=== PATIENT | female | born 1990 | race American Indian/Alaskan Native ===

== ENCOUNTER 2016-11-12 01:01 | Emergency (ER) | payer MEDICARE ==
[2016-11-12 01:08] VITALS: BP 154/85
== END 2016-11-12 01:08 | disposition left against medical advice (07) ==
LOC: ED 01:01
DX: Z53.21 Procedure and treatment not carried out due to patient leaving prior to being seen by health care provider (principal)

== ENCOUNTER 2017-11-04 06:28 | Emergency (ER) | payer MEDICARE ==
--- NOTE | 2017-11-04 08:08 | XRay Report ---
LEFT HUMERUS, ONE VIEW LEFT FOREARM, ONE VIEW History: Fall, injury, arm pain. Findings: Single views of the left upper extremity were obtained. A comminuted and mildly displaced fracture is identified in the distal left humeral shaft. Posterior displacement measures 1.2 cm. A butterfly fragment is present measuring approximately 4 cm in length. Limited single view of the left forearm demonstrates no gross abnormality. There is poor visualization of the radial head. Impression: Comminuted, mildly displaced fracture of the distal left humerus. No gross abnormality with the left forearm although the radial head is poorly imaged.
[2017-11-04] MEDS ORDERED: ZOFRAN IV ONE (08:25)
[2017-11-04] MEDS ORDERED: DILAUDID IV ONE ×2 (08:25→09:35)
[2017-11-04] MEDS ORDERED: TORADOL IV ONE (08:25)
--- NOTE | 2017-11-04 08:34 | Emergency Department Report ---
ED Upper Extremity Inj HPI - General Chief Complaint: Extremity Injury, Upper Stated Complaint: LT ARM INJURY Time Seen by Provider: 11/04/17 08:19 Source: patient, family Mode of arrival: Wheelchair Limitations: No Limitations, Physical Limitation - History of Present Illness Initial Comments: 27-year-old [id number] female with a past medical history childhood asthma and bipolar disorder presents to the hospital complaining of left arm pain after fall 30 minutes prior to arrival. Patient was trying to lift a box spring, her foot got caught in the railing and she fell backwards and heard a pop on her left arm patient presents with 10/10 constant left arm pain worse with movement and palpation. No alleviating factors reported. No other injury reported. - Related Data Home Medications Medication Instructions Recorded Confirmed Last Taken Benztropine [Cogentin] 0.5 mg PO BID 09/24/13 09/24/[address] [Depakote] 125 mg PO QID 09/24/13 09/24/13 Unknown Paliperidone [Invega] 09/24/13 09/24/13 Unknown diphenhydrAMINE [Benadryl] 09/24/13 09/24/13 Unknown Previous Rx's Medication Instructions Recorded Last Taken Type Azithromycin [Zithromax] 500 mg PO QDAY #5 tablet 07/16/13 Unknown Rx Hycodan Susp 1 tsp PO Q6H PRN #120 ml 07/16/13 Unknown Rx Acetaminophen/Codeine [Tylenol #3] 1 tab PO Q6H PRN #12 tab 09/24/13 Unknown Rx Ciprofloxacin HCl [Cipro] 500 mg PO Q12H #30 tab 09/24/13 Unknown Rx predniSONE [Deltasone] 50 mg PO QDAY #5 tab 09/24/13 Unknown Rx HYDROcodone/APAP 5-325 [[place] 1 each PO Q6HR PRN #20 tablet 11/04/17 Unknown Rx 5/325] Ibuprofen [Motrin] 800 mg PO Q8HR PRN #30 tablet 11/04/17 Unknown Rx Allergies Allergy/AdvReac Type Severity Reaction Status Date / Time No Known Allergies Allergy Verified 09/24/13 19:20 ED Review of Systems ROS: Stated complaint: LT ARM INJURY Other details as noted in HPI Comment: All other systems reviewed and negative Other: Constitutional: No fevers chills Eyes: No eye pain visual changes ENT: No ear pain or throat pain Neck: Denies pain Respiratory: Denies cough wheezing shortness of breath Cardiovascular: Denies chest pain, palpitations, syncope GI: Denies abdominal pain, nausea, vomiting, diarrhea : Denies dysuria, urinary frequency, or urgency Musculoskeletal: As per HPI Skin: Denies rash, lesions, erythema Neurologic: Denies headache, numbness, weakness Psychiatric: Denies suicidal ideation, hallucinations Hematological/lymphatic: Denies easy bruising, lymphadenopathy ED Past Medical Hx - Past Medical History Previous Medical History?: Yes Hx Psychiatric Treatment: Yes (bipolar) Hx Asthma: Yes (as child) - Surgical History Past Surgical History?: No - Social History Smoking Status: Never Smoker Substance Use Type: None - Medications Home Medications: Home Medications Medication Instructions Recorded Confirmed Last Taken Type Azithromycin [Zithromax] 500 mg PO QDAY #5 tablet 07/16/13 09/24/13 Unknown Rx Hycodan Susp 1 tsp PO Q6H PRN #120 ml 07/16/13 09/24/13 Unknown Rx Acetaminophen/Codeine [Tylenol #3] 1 tab PO Q6H PRN #12 tab 09/24/13 Unknown Rx Benztropine [Cogentin] 0.5 mg PO BID 09/24/13 09/24/13 Unknown History Ciprofloxacin HCl [Cipro] 500 mg PO Q12H #30 tab 09/24/[address] [Depakote] 125 mg PO QID 09/24/13 09/24/13 Unknown History Paliperidone [Invega] 09/24/13 09/24/13 Unknown History diphenhydrAMINE [Benadryl] 09/24/13 09/24/13 Unknown History predniSONE [Deltasone] 50 mg PO QDAY #5 tab 09/24/13 Unknown Rx HYDROcodone/APAP 5-325 [[place] 1 each PO Q6HR PRN #20 tablet 11/04/17 Unknown Rx 5/325] Ibuprofen [Motrin] 800 mg PO Q8HR PRN #30 tablet 11/04/17 Unknown Rx ED Physical Exam - General Limitations: No Limitations, Physical Limitation - Other Other exam information: General: No limitations, patient is alert in no acute distress Head exam: Atraumatic, normocephalic Eyes exam: Normal appearance ENT: Moist mucous membrane, normal oropharynx Neck exam: Normal inspection, full range of motion, no meningismus nontender Respiratory exam: Clear to auscultation bilateral, no wheezes, rales, crackles Cardiovascular: Normal rate and rhythm, normal heart sounds Abdomen: Soft, nondistended, and nontender, with normal bowel sounds, no rebound, or guarding Extremity: Left arm swelling with tenderness humerus. 2+ radial pulses. Radial nerve function including wrist dorsiflexion, thumb movement, and also movement of the fingers appeared to be intact and adequate strength against resistance. Sensation also intact Back: Normal Inspection, full range of motion, no tenderness Neurologic: Alert, oriented x3, cranial nerves intact, no motor or sensory deficit Psychiatric: normal affect, normal mood Skin: Warm, dry, intact ED Course Vital Signs 11/04/17 11/04/17 11/04/17 07:04 08:25 08:36 Temperature 98.7 F Pulse Rate 89 86 Respiratory 18 20 Rate Blood Pressure 99/47 Blood Pressure 143/94 [right arm] O2 Sat by Pulse 100 99 99 Oximetry - Reevaluation(s) Reevaluation #1: 11/04/17 09:08 Patient treated with Dilaudid, Zofran, and Toradol for pain - Consultations Consultation #1: 11/04/17 08:[address] Potts certified health education specialist orthopedic surgeon. Recommended coaptation splint and follow-up on Tuesday ED Medical Decision Making - Radiology Data Radiology results: report reviewed Read by radiologist Left humerus/forearm x-ray: Comminuted mildly displaced fracture of the distal left wrist. No gross abnormality with the left forearm at the radial head is poorly - Medical Decision Making Patient received a left arm coarctation splint of the humerus and swelling Splint inspected by me and deemed effective (after second placement) Pt will be d/joaquim on meds and ortho f/u - Differential Diagnosis fracture, contusion, sprain Critical Care Time: No Critical care attestation.: If time is entered above; I have spent that time in minutes in the direct care of this critically ill patient, excluding procedure time. ED Disposition Clinical Impression: Humerus distal fracture Qualifiers: Encounter type: initial encounter Fracture type: closed Fracture alignment: displaced Laterality: left Disposition: DC-01 TO HOME OR SELFCARE Is pt being admited?: No Does the pt Need Aspirin: No Condition: Stable Instructions: Arm Fracture in Adults (ED) Additional Instructions: Take the medication as prescribed. Follow up on Tuesday with the orthopedic surgeon provided or with orthopedic surgeon of your choice Prescriptions: HYDROcodone/APAP 5-325 [[place] 5/325] 1 each PO Q6HR PRN #20 tablet PRN Reason: Pain Ibuprofen [Motrin] 800 mg PO Q8HR PRN #30 tablet PRN Reason: Pain Referrals: ASHLEY POTTS MD [Staff Physician] - 11/07/17 Time of Disposition: 10:33
[2017-11-04] MEDS ORDERED: PERCOCET 5/325 PO ONE (09:51)
[2017-11-04 11:11] VITALS: BP 121/79
== END 2017-11-04 11:20 | disposition home or self-care (01) ==
LOC: ED 06:28
DX: S42.492A Other displaced fracture of lower end of left humerus, initial encounter for closed fracture (principal); F31.9 Bipolar disorder, unspecified; J45.909 Unspecified asthma, uncomplicated; W19.XXXA Unspecified fall, initial encounter; Y93.89 Activity, other specified; Y99.8 Other external cause status; Y92.89 Other specified places as the place of occurrence of the external cause
CPT/HCPCS: 29105; 36415; 73060; 73090; 84703; 96374; 96375; 96376; 99284; J1170; J1885; J2405

== ENCOUNTER 2017-11-14 09:29 | Observation (INO) | payer MEDICARE ==
[~2017-11-14 09:29] MED LIST: ANCEF/STERILE WATER 2 GM/20 ML IV NR
[2017-11-14] MEDS ORDERED: NACL BACTERIOSTATIC INFILTRATI ONE (09:50)
[2017-11-14] MEDS ORDERED: ZEMURON IV ONE ×2 (09:56→14:57)
[2017-11-14] MEDS ORDERED: XYLOCAINE MPF 2% ONE ×2 (09:56→14:57)
[2017-11-14] MEDS ORDERED: DIPRIVAN 10 MG/ML IV ONE (09:57)
[2017-11-14] MEDS ORDERED: SUBLIMAZE ONE (09:57)
--- NOTE | 2017-11-14 10:13 | Anesthesia Consultation ---
Anesthesia Consult and Med Hx Date of service: 11/14/17 - Airway Anesthetic Teeth Evaluation: Good ROM Head & Neck: Adequate Mental/Hyoid Distance: Adequate Mallampati Class: Class I Intubation Access Assessment: Good - Pulmonary Exam CTA: Yes - Pre-Operative Health Status ASA Pre-Surgery Classification: ASA2 Proposed Anesthetic Plan: General - Pulmonary Hx Smoking: No Hx Asthma: Yes ( CHILD ONLY) Hx Sleep Apnea: No (TAMI PRE SCREEN HIGH RISK) - Cardiovascular System Hx Hypertension: Yes (X 1 YR) - Other Systems Hx Cancer: No
--- NOTE | 2017-11-14 10:14 | Anesthesia Day of Surgery ---
Anesthesia Day of Surgery - Day of Surgery Patient Examined: Yes Patient H&P Reviewed: Yes Patient is NPO: Yes
[2017-11-14] MEDS: NACL 0.9% 1000 ML 1,000 ML IV SCH (10:40)
[2017-11-14] MEDS ORDERED: VERSED IV NR (11:00)
[2017-11-14] MEDS ORDERED: NEOSPORIN GU IR ONE ×2 (13:43→14:00)
[2017-11-14] MEDS ORDERED: PERCOCET 5/325 PO PRN (14:23)
[2017-11-14] MEDS ORDERED: MORPHINE IV PRN ×2 (14:23)
[2017-11-14] MEDS ORDERED: TYLENOL PO PRN (14:23)
--- NOTE | 2017-11-14 14:36 | Procedure Note ---
Date of procedure: 11/14/17 Pre-op diagnosis: displaced comminuted left distal humerus fracture Post-op diagnosis: same Procedure: Open reduction internal fixation left distal humerus Procedure The patient was brought to the OR placed on the OR table in supine position following induction intubation by anesthesia the patient's left upper extremity was prepped and draped in the usual sterile manner. A timeout procedure was done to identify the patient and the correct operative site. Using the posterior approach and incision was made along the mid to distal third humerus this is taken down sharply through skin and subcutaneous the fascia overlying the triceps tendon was incised The musc belly was split longitudinally using retractors the fracture site was identified the patient was noted to have a comminuted fracture with a medium size butterfly fragment located medially care was taken to the early callus formation. During the during the course of the liver. Manipulating the bone back into its anatomic location the butterfly fragment fell off the table but not directly onto the floor this bony fragment was retrieved and washed with a Betadine solution, it was then reapproximated to the distal fragment this was then secured by 2 interfragmentary screws, next the Lateral locking plate was applied to the distal humerus this was then secured bilaterally of a combination of locking and nonlocking screws of various lengths and AP and lateral on our C-arm was obtained and showed good reduction at the fracture site and placement of the hardware was then taken through range of motion and was found to be stable The wound was copiously irrigate and closure was begun starting with the triceps tendon and the deep fascia the skin was closed using 0 Vicryl and 2-0 Vicryl with a running subcuticular stitch for the skin routine postoperative dressings were applied the patient tolerated the procedure and there were no complications. She was taken to postanesthesia recovery in a stable condition Anesthesia: LADARIUS Surgeon: ASHLEY NAIR Asset Recovery Specialist: MARKELL YUAN Estimated blood loss: 50-100ml Pathology: none Condition: stable Disposition: PACU
[2017-11-14] MEDS ORDERED: ZOFRAN ONE (14:57)
[2017-11-14] MEDS ORDERED: DECADRON ONE (14:57)
[2017-11-14] MEDS ORDERED: ROBINUL ONE (14:57)
[2017-11-14] MEDS ORDERED: NEOSTIGMINE ONE (14:57)
[2017-11-14] MEDS ORDERED: SODIUM CHLORIDE FLUSH SYRINGE 10 ML IV NR (15:00)
[2017-11-14] MEDS ORDERED: SODIUM CHLORIDE FLUSH SYRINGE 10 ML IV SCH (15:00)
[2017-11-14] MEDS ORDERED: ANCEF/NS 1 GM/50 ML 1 GM/50 ML BAG IV SCH (15:00)
--- NOTE | 2017-11-14 15:24 | Post Anesthesia Evaluation ---
- Post Anesthesia Evaluation Patient Participated: Yes Airway Patent: Yes Stable Respiratory Function: Yes Nausea/Vomiting: No Temp > 96.8F: Yes Pain Manageable: Yes Adequeate Hydration: Yes Anesthesia Complications: No
[2017-11-14] MEDS ORDERED: TORADOL IV PRN (15:54)
[2017-11-14] MEDS: DILAUDID IV PRN ×2 (16:05→16:16)
[2017-11-15] MEDS: ceFAZolin 1 GM in NACL 0.9% 20 ML IV SCH ×2 (00:54→01:44)
[2017-11-15] MEDS: NACL 0.9% 1000 ML 1,000 ML IV SCH (01:44)
--- NOTE | 2017-11-15 07:28 | XRay Report ---
LEFT ELBOW, 2 VIEWS History: Left humerus fracture, pain, intraoperative films. Findings: 4 fluoroscopic images were obtained during surgery which demonstrate open reduction and internal fixation of a comminuted distal left humeral fracture. Alignment is anatomic on the final images. There is normal articulation at the left elbow. Impression: Open reduction and internal fixation of a distal left humerus fracture as described. Correlate with the operative report if further information is needed.
[2017-11-15 08:13] VITALS: BP 127/69
--- NOTE | 2017-11-15 12:05 | Progress Note ---
Assessment and Plan doing well s/p ORIF left distal humerus will discharge to home with return f/u in office 1 wk... Subjective Date of service: 11/15/17 Interval history: doing well, c/o incisional pain otherwise OK Objective Vital signs: Vital Signs - 12hr 11/15/17 11/15/17 11/15/17 05:04 06:49 07:47 Temperature 99.9 F H 98.3 F 98.9 F Pulse Rate 91 H 100 H Respiratory 20 18 Rate Blood Pressure 141/86 127/69 O2 Sat by Pulse 99 100 Oximetry Narrative Exam: left UE - post op dressing intact, good passive ROM, + dorsiflexion at wrist/ fingers, good capillary refill
== END 2017-11-15 14:00 | disposition home or self-care (01) ==
LOC: OR 09:29 → 3B-SURG 14:19
PROVIDERS: ADMIT Orthopaedic Surgery; ATTEND Orthopaedic Surgery
DX: S42.492A Other displaced fracture of lower end of left humerus, initial encounter for closed fracture (principal); I10 Essential (primary) hypertension; J45.909 Unspecified asthma, uncomplicated; F31.9 Bipolar disorder, unspecified; E66.9 Obesity, unspecified; Z68.41 Body mass index [BMI] 40.0-44.9, adult; W18.39XA Other fall on same level, initial encounter; Y93.89 Activity, other specified; Y92.89 Other specified places as the place of occurrence of the external cause; Y99.8 Other external cause status
CPT/HCPCS: 24586; 73070; 81025; 96374; 96375; C1713; G0378; J0690; J1100; J1170; J1885; J2250; J2270; J2405; J2704; J2710; J3010; J7030

== ENCOUNTER 2017-12-23 12:03 | Outpatient (CLI) | payer MEDICARE ==
--- NOTE | 2017-12-23 18:36 | XRay Report ---
FINAL REPORT PROCEDURE: XR HUMERUS 2+V LT TECHNIQUE: LEFT humerus radiographs, AP and lateral views. HISTORY: DISPLACED FRACTURE OF LOWER END OF LEFT HUMERUS COMPARISON: No prior studies are available for comparison. FINDINGS: There is a plate with multiple screws identified along the distal left humerus. The stabilizes a fracture of the distal humerus. Mild soft tissue swelling this region is noted. No prior studies are available for review. No evidence of a recent fracture. IMPRESSION: ORIF of the distal humerus as described.
== END 2017-12-23 12:04 | disposition home or self-care (01) ==
LOC: XRAY 12:03
PROVIDERS: ATTEND Orthopaedic Surgery
DX: S42.492D Other displaced fracture of lower end of left humerus, subsequent encounter for fracture with routine healing (principal); X58.XXXD Exposure to other specified factors, subsequent encounter

== ENCOUNTER 2021-08-11 16:24 | Emergency (ER) | payer MEDICARE ==
--- NOTE | 2021-08-11 18:08 | Emergency Department Report ---
ED Anxiety HPI - General Chief Complaint: Anxiety Stated Complaint: NEED SOMETHING FOR NERVES Time Seen by Provider: 08/11/21 17:57 Source: patient, family Mode of arrival: Ambulatory Limitations: No Limitations - History of Present Illness Initial Comments: mother present with pts permission Patient is a 31-year-old female brought in by her mother with complaints of "needing something for her nerves." She states that she has been feeling anxious since yesterday. She states that she has a lot of increased stress and is currently failing a class. She states that she just feels overwhelmed and feels like her thoughts are racing. States that she is having some difficulty sleeping secondary to the anxiety. She denies any physical complaints. She denies any SI, HI, hallucinations. Past medical history of bipolar and schizophrenia and mother reports that she takes Depakote and Abilify. She denies any missed doses of her medications. she states that she does have a psychiatrist Dr. Drake but they have not called their office yet. No allergies to medicines. - Related Data Home Medications: Home Medications Medication Instructions Recorded Confirmed Last Taken Benztropine [Cogentin] 0.5 mg PO BID 09/24/13 11/08/17 11/14/17 08:[address] [Depakote] 125 mg PO QID 09/24/13 11/08/17 11/14/17 08:00 lisinopriL [Prinivil] 10 mg PO DAILY 11/08/17 11/08/17 11/14/17 08:00 Slimvance 1 cap PO BID 11/14/17 11/14/17 11/07/17 Previous Rx's Medication Instructions Recorded Last Taken Type HYDROcodone/APAP 5-325 [[place] 1 each PO Q6HR PRN #20 tablet 11/04/17 11/14/17 08:00 Rx 5/325] Ibuprofen [Motrin] 800 mg PO Q8HR PRN #30 tablet 11/04/17 11/10/17 Rx HYDROcodone/APAP 7.5-325 [[place] 1 each PO Q6HR PRN #30 tablet 11/15/17 Unknown Rx 7.5-325 mg TAB] hydrOXYzine HCL [Atarax] 25 mg PO Q6HR PRN #30 tablet 08/11/21 Unknown Rx Allergies/Adverse Reactions: Allergies Allergy/AdvReac Type Severity Reaction Status Date / Time No Known Allergies Allergy Verified 09/24/13 19:20 ED Review of Systems ROS: Stated complaint: NEED SOMETHING FOR NERVES Other details as noted in HPI Comment: All other systems reviewed and negative ED Past Medical Hx - Past Medical History Hx Hypertension: Yes (X 1 YR) Hx Psychiatric Treatment: Yes (bipolar) Hx Asthma: Yes ( CHILD ONLY) Hx HIV: No - Social History Smoking Status: Never Smoker - Medications Home Medications: Home Medications Medication Instructions Recorded Confirmed Last Taken Type Benztropine [Cogentin] 0.5 mg PO BID 09/24/13 11/08/17 11/14/17 08:[address] [Depakote] 125 mg PO QID 09/24/13 11/08/17 11/14/17 08:00 History HYDROcodone/APAP 5-325 [[place] 1 each PO Q6HR PRN #20 tablet 11/04/17 11/08/17 11/14/17 08:00 Rx 5/325] Ibuprofen [Motrin] 800 mg PO Q8HR PRN #30 tablet 11/04/17 11/14/17 11/10/17 Rx lisinopriL [Prinivil] 10 mg PO DAILY 11/08/17 11/08/17 11/14/17 08:00 History Slimvance 1 cap PO BID 11/14/17 11/14/17 11/07/17 History HYDROcodone/APAP 7.5-325 [[place] 1 each PO Q6HR PRN #30 tablet 11/15/17 Unknown Rx 7.5-325 mg TAB] hydrOXYzine HCL [Atarax] 25 mg PO Q6HR PRN #30 tablet 08/11/21 Unknown Rx ED Physical Exam - General Limitations: No Limitations General appearance: alert, in no apparent distress - Head Head exam: Present: atraumatic, normocephalic - Eye Eye exam: Present: normal appearance - ENT ENT exam: Present: mucous membranes moist - Respiratory Respiratory exam: Present: normal lung sounds bilaterally. Absent: respiratory distress, wheezes, rales, rhonchi, stridor, chest wall tenderness, accessory muscle use, decreased breath sounds, prolonged expiratory - Cardiovascular Cardiovascular Exam: Present: regular rate, normal rhythm, normal heart sounds. Absent: systolic murmur, diastolic murmur, rubs, gallop - Neurological Exam Neurological exam: Present: alert, oriented X3 - Psychiatric Psychiatric exam: Present: anxious (mildly). Absent: homicidal ideation, suicidal ideation - Skin Skin exam: Present: warm, dry, intact ED Course Vital Signs 08/11/21 16:24 Temperature 98.0 F Pulse Rate 76 Respiratory 18 Rate Blood Pressure 155/74 [Right] O2 Sat by Pulse 99 Oximetry ED Medical Decision Making - Medical Decision Making mother present with pts permission Patient is a 31-year-old female brought in by her mother with complaints of "needing something for her nerves." She states that she has been feeling anxious since yesterday. She states that she has a lot of increased stress and is currently failing a class. She states that she just feels overwhelmed and feels like her thoughts are racing. States that she is having some difficulty sleeping secondary to the anxiety. She denies any physical complaints. She denies any SI, HI, hallucinations. Past medical history of bipolar and schizophrenia and mother reports that she takes Depakote and Abilify. She denies any missed doses of her medications. she states that she does have a psychiatrist Dr. Drake but they have not called their office yet. No allergies t o medicines. Vitals are stable. Patient has no clinical signs of acute psychosis. She is not having any SI or HI. Given prescription for hydroxyzine. Advised patient and patient's mother Please take medication as prescribed as needed. Please practice healthy coping mechanisms such as breathing exercises, taking a walk, exercise, meditation, watching videos. Follow-up with your psychiatrist. Return to emergency room immediately for any new or worsening symptoms including but not limited to thoughts of wanting to hurt yourself or others or seeing or hearing things. Critical care attestation.: If time is entered above; I have spent that time in minutes in the direct care of this critically ill patient, excluding procedure time. ED Disposition Clinical Impression: Anxiety Disposition: 01 HOME / SELF CARE / HOMELESS Is pt being admited?: No Does the pt Need Aspirin: No Condition: Stable Instructions: Managing Anxiety, Adult Additional Instructions: Please take medication as prescribed as needed. Please practice healthy coping mechanisms such as breathing exercises, taking a walk, exercise, meditation, watching videos. Follow-up with your psychiatrist. Return to emergency room immediately for any new or worsening symptoms including but not limited to thoughts of wanting to hurt yourself or others or seeing or hearing things. Prescriptions: hydrOXYzine HCL [Atarax] 25 mg PO Q6HR PRN #30 tablet PRN Reason: anxiety Referrals: your, psychiatrist [Other] - 3-5 Days Time of Disposition: 18:06 Print Language: FRENCH
[2021-08-11 18:57] VITALS: BP 155/74
== END 2021-08-11 18:14 | disposition home or self-care (01) ==
LOC: ED 16:24
DX: F41.9 Anxiety disorder, unspecified (principal); F31.9 Bipolar disorder, unspecified; F20.9 Schizophrenia, unspecified
CPT/HCPCS: 99282

== ENCOUNTER 2021-08-20 10:01 | Emergency (ER) | payer MEDICARE ==
--- NOTE | 2021-08-20 10:28 | Event Note ---
ED Screening Note ED Screening Note: WAS AT SCHOOL THIS AM SHE WAS SITTING STOOD UP THEN TEACHER STANDING ABOVE HER WHILE SHE WAS ON FLOOR NO HX OF THE SAME NO DM NOT LMP 12 CONTUSION AND SWELLING LEFT AMISH AREA This initial assessment/diagnostic orders/clinical plan/treatment(s) is/are subject to change based on patients health status, clinical progression and re- assessment by fellow clinical providers in the ED. Further treatment and workup at subsequent clinical providers discretion. Patient/guardian urged not to elope from the ED as their condition may be serious if not clinically assessed and managed. Initial orders include: LABS UA EKG
[2021-08-20 11:04] VITALS: BP 113/76
[2021-08-20 11:20] LABS: Basophils # (Auto) 0.1 K/mm3 (0.0-0.1); Basophils % (Auto) 1.2 % (0.0-1.8); Eosinophils # (Auto) 0.1 K/mm3 (0.0-0.4); Eosinophils % (Auto) 1.3 % (0.0-4.3); Hematocrit 37.4 % (30.3-42.9); Hemoglobin 12.3 gm/dl (10.1-14.3); Lymphocytes % (Auto) 23.3 % (13.4-35.0); Mean Corpuscular HGB Conc 33 % (30-34); Mean Corpuscular Volume 92 fl (79-97); Monocytes # (Auto) 0.6 K/mm3 (0.0-0.8); Monocytes % (Auto) 7.4 % (0.0-7.3); Platelet Count 337 K/mm3 (140-440); Red Blood Count 4.08 M/mm3 (3.65-5.03); Red Cell Distribution Width 13.9 % (13.2-15.2)
--- NOTE | 2021-08-20 11:24 | Emergency Department Report ---
HPI - General Chief Complaint: Syncope Time Seen by Provider: 08/20/21 10:19 - HPI HPI: 31-year-old -Portuguese female presents to the emergency department with a complaint of passing out prior to presentation while at school. Patient says that she stood up from her desk and was stretching and then woke up on the floor. She says that she initially remembers hearing her teacher asked her if she is okay but could not respond at first, but then when the teacher asked again she said that she had started to come to. She has a past medical history of hypertension and anxiety. She denies ever having a syncopal episode previously. Patient says that she had the left side of her head, just next to her eye, so she woke up with some discomfort in this area. No recent travel or sick contacts at home. She denies any tobacco or illicit drug use. She took her normal home medications including Abilify, hydroxyzine and lisinopril, but otherwise has not taken any treatment prior to presentation. She was driven into be seen by her mother. ED Past Medical Hx - Past Medical History Hx Hypertension: Yes (X 1 YR) Hx Psychiatric Treatment: Yes (bipolar) Hx Asthma: Yes ( CHILD ONLY) Hx HIV: No - Social History Smoking Status: Never Smoker - Medications Home Medications: Home Medications Medication Instructions Recorded Confirmed Last Taken Type Benztropine [Cogentin] 0.5 mg PO BID 09/24/13 11/08/17 11/14/17 08:[address] [Depakote] 125 mg PO QID 09/24/13 11/08/17 11/14/17 08:00 History HYDROcodone/APAP 5-325 [[place] 1 each PO Q6HR PRN #20 tablet 11/04/17 11/08/17 11/14/17 08:00 Rx 5/325] Ibuprofen [Motrin] 800 mg PO Q8HR PRN #30 tablet 11/04/17 11/14/17 11/10/17 Rx lisinopriL [Prinivil] 10 mg PO DAILY 11/08/17 11/08/17 11/14/17 08:00 History Slimvance 1 cap PO BID 11/14/17 11/14/17 11/07/17 History HYDROcodone/APAP 7.5-325 [[place] 1 each PO Q6HR PRN #30 tablet 11/15/17 Unknown Rx 7.5-325 mg TAB] hydrOXYzine HCL [Atarax] 25 mg PO Q6HR PRN #30 tablet 08/11/21 Unknown Rx ED Review of Systems ROS: Stated complaint: SYNCOPE Other details as noted in HPI Comment: All other systems reviewed and negative Constitutional: denies: chills, fever Eyes: denies: eye pain, vision change ENT: denies: ear pain, throat pain Respiratory: denies: cough, shortness of breath Cardiovascular: syncope. denies: chest pain Gastrointestinal: denies: abdominal pain, vomiting Genitourinary: denies: dysuria, discharge Musculoskeletal: denies: back pain, arthralgia Skin: denies: rash, lesions Neurological: headache. denies: weakness, numbness, paresthesias Physical Exam - Physical Exam Vital Signs: Vital Signs 08/20/21 11:00 Temperature 98.9 F Pulse Rate 79 Respiratory 18 Rate Blood Pressure 113/76 [Right] O2 Sat by Pulse 99 Oximetry Physical Exam: GENERAL: The patient is well-developed well-nourished. HENT: Normocephalic. Patient has moist mucous membranes. There is some tenderness to palpation and mild swelling just lateral to the left eye over the lateral orbit. EYES: Extraocular motions are intact. Pupils equal reactive to light bilaterally. No nystagmus. NECK: Supple. Trachea is midline. CHEST/LUNGS: Clear to auscultation. There is no respiratory distress noted. HEART/CARDIOVASCULAR: Regular. There is no tachycardia. There is no murmur. ABDOMEN: Abdomen is soft, nontender. Patient has normal bowel sounds. SKIN: Skin is warm and dry. NEURO: The patient is awake, alert, and oriented. The patient is cooperative. The patient has no focal neurologic deficits. Normal speech. Cranial nerves II through XII grossly intact. No facial asymmetry. No pronator drift or dysmetria. MUSCULOSKELETAL: There is no tenderness or deformity. There is no limitation range of motion. ED Course Vital Signs 08/20/21 11:00 Temperature 98.9 F Pulse Rate 79 Respiratory 18 Rate Blood Pressure 113/76 [Right] O2 Sat by Pulse 99 Oximetry ED Medical Decision Making - Lab Data Result diagrams: 08/20/21 10:55 08/20/21 10:55 Lab Results 08/20/21 08/20/21 08/20/21 Range/Units 10:55 10:55 10:55 WBC 8.8 (4.5-11.0) K/mm3 RBC 4.08 (3.65-5.03) M/mm3 Hgb 12.3 (10.1-14.3) gm/dl Hct 37.4 (30.3-42.9) % MCV 92 (79-97) fl MCH 30 (28-32) pg MCHC 33 (30-34) % RDW 13.9 (13.2-15.2) % Plt Count 337 (140-440) K/mm3 Lymph % (Auto) 23.3 (13.4-35.0) % King % (Auto) 7.4 H (0.0-7.3) % Eos % (Auto) 1.3 (0.0-4.3) % Baso % (Auto) 1.2 (0.0-1.8) % Lymph # (Auto) 2.0 (1.2-5.4) K/mm3 King # (Auto) 0.6 (0.0-0.8) K/mm3 Eos # (Auto) 0.1 (0.0-0.4) K/mm3 Baso # (Auto) 0.1 (0.0-0.1) K/mm3 Seg Neutrophils % 66.8 (40.0-70.0) % Seg Neutrophils # 5.9 (1.8-7.7) K/mm3 Sodium 132 L (137-145) mmol/L Potassium 3.9 (3.6-5.0) mmol/L Chloride 97.3 L (98-107) mmol/L Carbon Dioxide 21 L (22-30) mmol/L Anion Gap 18 mmol/L BUN 8 (7-17) mg/dL Creatinine 0.6 (0.6-1.2) mg/dL Estimated GFR > 60 ml/min BUN/Creatinine Ratio 13 % Glucose 71 (65-100) mg/dL Calcium 9.2 (8.4-10.2) mg/dL Magnesium 2.30 (1.7-2.3) mg/dL Total Bilirubin 0.20 (0.1-1.2) mg/dL AST 17 (5-40) units/L ALT 16 (7-56) units/L Alkaline Phosphatase 67 (35-129) units/L Total Creatine Kinase (30-135) units/L Troponin T < 0.010 (0.00-0.029) ng/mL Total Protein 7.7 (6.3-8.2) g/dL Albumin 4.1 (3.9-5) g/dL Albumin/Globulin Ratio 1.1 % TSH (0.270-4.200) mlU/mL HCG, Qual Negative (Negative) Urine Color (Yellow) Urine Turbidity (Clear) Urine pH (5.0-7.0) Ur Specific [place] (1.003-1.030) Urine Protein (Negative) mg/dL Urine Glucose (UA) (Negative) mg/dL Urine Ketones (Negative) mg/dL Urine Blood (Negative) Urine Nitrite (Negative) Urine Bilirubin (Negative) Urine Urobilinogen (<2.0) mg/dL Ur Leukocyte Esterase (Negative) Urine WBC (Auto) (0.0-6.0) /HPF Urine RBC (Auto) (0.0-6.0) /HPF U Epithel Cells (Auto) (0-13.0) /HPF Urine Bacteria (Auto) (Negative) /HPF Urine Mucus /HPF 08/20/21 08/20/21 08/20/21 Range/Units 10:55 10:55 Unknown WBC (4.5-11.0) K/mm3 RBC (3.65-5.03) M/mm3 Hgb (10.1-14.3) gm/dl Hct (30.3-42.9) % MCV (79-97) fl MCH (28-32) pg MCHC (30-34) % RDW (13.2-15.2) % Plt Count (140-440) K/mm3 Lymph % (Auto) (13.4-35.0) % King % (Auto) (0.0-7.3) % Eos % (Auto) (0.0-4.3) % Baso % (Auto) (0.0-1.8) % Lymph # (Auto) (1.2-5.4) K/mm3 King # (Auto) (0.0-0.8) K/mm3 Eos # (Auto) (0.0-0.4) K/mm3 Baso # (Auto) (0.0-0.1) K/mm3 Seg Neutrophils % (40.0-70.0) % Seg Neutrophils # (1.8-7.7) K/mm3 Sodium (137-145) mmol/L Potassium (3.6-5.0) mmol/L Chloride (98-107) mmol/L Carbon Dioxide (22-30) mmol/L Anion Gap mmol/L BUN (7-17) mg/dL Creatinine (0.6-1.2) mg/dL Estimated GFR ml/min BUN/Creatinine Ratio % Glucose (65-100) mg/dL Calcium (8.4-10.2) mg/dL Magnesium (1.7-2.3) mg/dL Total Bilirubin (0.1-1.2) mg/dL AST (5-40) units/L ALT (7-56) units/L Alkaline Phosphatase (35-129) units/L Total Creatine Kinase 92 (30-135) units/L Troponin T (0.00-0.029) ng/mL Total Protein (6.3-8.2) g/dL Albumin (3.9-5) g/dL Albumin/Globulin Ratio % TSH 1.160 (0.270-4.200) mlU/mL HCG, Qual (Negative) Urine Color Yellow (Yellow) Urine Turbidity Cloudy (Clear) Urine pH 7.0 (5.0-7.0) Ur Specific Rigby 1.011 (1.003-1.030) Urine Protein <15 mg/dl (Negative) mg/dL Urine Glucose (UA) Neg (Negative) mg/dL Urine Ketones Neg (Negative) mg/dL Urine Blood Neg (Negative) Urine Nitrite Neg (Negative) Urine Bilirubin Neg (Negative) Urine Urobilinogen 2.0 (<2.0) mg/dL Ur Leukocyte Esterase Tr (Negative) Urine WBC (Auto) 3.0 (0.0-6.0) /HPF Urine RBC (Auto) 4.0 (0.0-6.0) /HPF U Epithel Cells (Auto) 23.0 H (0-13.0) /HPF Urine Bacteria (Auto) 2+ (Negative) /HPF Urine Mucus Few /HPF - EKG Data -: EKG Interpreted by Hi EKG shows normal: sinus rhythm, axis, intervals, QRS complexes (Q waves to the septal leads), ST-T waves Rate: normal - EKG Data When compared to previous EKG there are: previous EKG unavailable Interpretation: other (Sinus rhythm at 73 bpm, normal axis, normal intervals, Q waves to the septal leads. No ST elevation OK) - Medical Decision Making This patient presents to the emergency department after the complaint of having a syncopal episode prior to presentation while at school. On examination the patient is awake, alert, oriented, AAO x3. She does not have any focal, motor or sensory deficits and her cranial nerves are intact. EKG did not have any morphology consistent with ST elevation myocardial infarction or any arrhythmia. Labs have been unremarkable including CBC, metabolic panel, normal thyroid function, normal CK level, urinalysis. Vital signs reassuring throughout her ED course. The patient has been reevaluated multiple times over multiple hours and there has been no further syncopal episodes and she has remained stable throughout her ED course. The patient was seen ambulatory in the emergency department and both appears and feels stable. For all these reason she appears safe for discharge home at this time. She has been instructed to follow-up with her primary care physician and return to the emergency department with any worsening of her symptoms or with any acute distress. Critical Care Time: No Critical care attestation.: If time is entered above; I have spent that time in minutes in the direct care of this critically ill patient, excluding procedure time. ED Disposition Clinical Impression: Syncope Qualifiers: Syncope type: unspecified Qualified Code(s): R55 - Syncope and collapse Disposition: 01 HOME / SELF CARE / HOMELESS Is pt being admited?: No Condition: Stable Instructions: Syncope, Syncope (ED) Additional Instructions: Please follow-up with your primary care physician in the next few days. Try to get 8 hours of uninterrupted sleep at night. Please try to avoid any heavy alcohol or caffeine use. Return to the emergency department with any worsening of your symptoms including further episodes of passing out, new or concerning symptoms not addressed during this current emergency department visit, or with any acute distress. Referrals: WALI SANTILLAN MD [Referring] - 2-3 Days Time of Disposition: 13:56
[2021-08-20 11:38] LABS: Alanine Aminotransferase 16 units/L (7-56); Albumin 4.1 g/dL (3.9-5); Blood Urea Nitrogen 8 mg/dL (7-17); Calcium 9.2 mg/dL (8.4-10.2); Hemolysis Index 21
[2021-08-20 11:40] LABS: BUN/Creatinine Ratio 13
[2021-08-20] MEDS ORDERED: IBUPROFEN 800 MG TAB PO ONE (12:33)
[2021-08-20 13:11] LABS: Bacteria,Urine 2+ /HPF (Negative); Bilirubin,Urine NEG (Negative); Blood,Urine NEG (Negative); Color,Urine Yellow (Yellow); Mucus,Urine FEW /HPF; Protein,Urine <15 mg/dL mg/dL (Negative)
--- NOTE | 2021-08-21 10:52 | Electrocardiograph Report ---
[facility] Test Date: 2021-08-20 Test Time: 10:38:37 Pat Name: SRAVAN CARBAJAL Department: Room: Gender: F Deli Cook: PREMA : 1990 Requested By: AMY MACHUCA Order Number: [id number] Reading MD: El Seymour Measurements Intervals [place] Rate: 73 P: 30 NC: 151 QRS: 41 QRSD: 80 T: 35 QT: 371 QTc: 410 Interpretive Statements Sinus rhythm nonspecific st-t No previous ECG available for comparison Electronically Signed On 08-21-2021 10:52:02 EST by El Seymour
== END 2021-08-20 14:53 | disposition home or self-care (01) ==
LOC: ED 10:01
DX: R55 Syncope and collapse (principal); I10 Essential (primary) hypertension; F31.9 Bipolar disorder, unspecified; J45.909 Unspecified asthma, uncomplicated
CPT/HCPCS: 36415; 80053; 81001; 82550; 83735; 84443; 84484; 84703; 85025; 93005; 99283

== ENCOUNTER 2022-05-25 06:37 | Emergency (ER) | payer MEDICARE | END 2022-05-25 06:53 | disposition left against medical advice (07) | LOC: ED 06:37 | DX: F43.0 Acute stress reaction (principal); Z53.21 Procedure and treatment not carried out due to patient leaving prior to being seen by health care provider ==